=== PATIENT | female | born 1945 | race Caucasian/White ===

== ENCOUNTER 2017-05-13 13:00 | Inpatient (IN) | payer MEDICARE, OTHER ==
[2017-05-26] MEDS ORDERED: CELECOXIB 100 MG CAPSULE PO ONE (06:00)
[2017-05-26] MEDS ORDERED: FAMOTIDINE 20MG TABLET PO ONE (06:00)
[2017-05-26] MEDS ORDERED: VANCOMYCIN HCL 1,000 MG in 0.9 % SODIUM CHLORIDE 250ML 250 ML IVPB ONE (06:00)
[2017-05-26] MEDS ORDERED: CEFAZOLIN 2 Gram 2 GM/50 ML BAG IVPB ONE (06:00)
[2017-05-26] MEDS ORDERED: METOCLOPRAMIDE 10 MG TABLET PO ONE (06:00)
[2017-05-26] MEDS ORDERED: MECLIZINE 25 MG TABLET PO ONE (06:00)
[2017-05-26 08:21] LABS: ABO GROUP A; ANTIBODY SCREEN NEGATIVE (NEGATIVE); RH TYPE POSITIVE
[2017-05-26] MEDS ORDERED: ONDANSETRON HCL IV 4 MG/2 ML VIAL IVP PRN (10:49)
[2017-05-26] MEDS ORDERED: KETOROLAC 30 MG/ML VIAL IVP PRN ×2 (10:49)
[2017-05-26] MEDS ORDERED: ZOLPIDEM TARTRATE 5 MG TABLET PO PRN (10:49)
[2017-05-26] MEDS ORDERED: BISACODYL 10 MG SUPP RC PRN (10:49)
[2017-05-26] MEDS ORDERED: DIPHENHYDRAMINE HCL 25 MG CAPSULE PO PRN (10:49)
[2017-05-26] MEDS ORDERED: HYDROMORPHONE HCL 2 MG/ML VIAL IM PRN (10:49)
[2017-05-26] MEDS ORDERED: HYDROCODONE/APAP 10/325 TABLET PO PRN (10:49)
[2017-05-26] MEDS ORDERED: ACETAMINOPHEN 325 MG TAB PO PRN (10:49)
[2017-05-26] MEDS ORDERED: HYDROMORPHONE HCL 1MG/ML **SYRINGE IM PRN (10:49)
[2017-05-26] MEDS ORDERED: TRAMADOL HCL 50 MG TABLET PO PRN (10:49)
[2017-05-26] MEDS ORDERED: MAGNESIUM HYDROXIDE 30 ML UDC PO PRN (10:49)
[2017-05-26] MEDS ORDERED: AL HYDROX/MAG HYDROX 30ML UD PO PRN (10:49)
[2017-05-26] MEDS ORDERED: NALOXONE 0.4 MG/1 ML VIAL IVP PRN (10:49)
[2017-05-26] MEDS ORDERED: ACETAMINOPHEN W/ CODEINE 300MG/60MG TABLET PO PRN ×2 (10:49)
[2017-05-26] MEDS ORDERED: TRANEXAMIC ACID 1,000 MG/10 ML ML IV ONE ×2 (11:11→16:18)
[2017-05-26] MEDS ORDERED: 0.9 % SODIUM CHLORIDE 10 ML VIAL IVP ONE (11:11)
[2017-05-26] MEDS ORDERED: BUPIVACAINE 0.5% W/EPI MPF 30 ML VIAL IVP ONE (11:11)
[2017-05-26] MEDS: POTASSIUM CHLORIDE/D5-0.9%NACL 20 MEQ/1,000 ML BAG IV SCH ×2 (11:44→23:11)
[2017-05-26] MEDS ORDERED: FLU VAC QS 2017-18 (INPT, 6MO+) 60MCG/0.5ML IM ONE (12:12)
--- NOTE | 2017-05-26 12:21 | Consult ---
Consult Order Detail - Reason for Consult Consult Date: 05/26/17 Consult Order Detail: Hypertension and medical management - Chief Complaint Chief Complaint: DEGENERATIVE JOINT DISEASE LEFT HIP HPI Consult - History of Present Illness Admitting Diagnosis: bobby left hip History of Present Illness: Ms. Pittman is 8- y/o female with degenerative joint disease of the left hip s/p arthroplasty this morning. Medicine has been consulted for medical management of the patients chronic conditions which include hypertension, hypothyroidism and gastroesophageal reflux. On examination this morning the patient is alert, awake and oriented but is somewhat lethargic postoperatively. She says that she is in no pain at this time and has no complaint. ROS Constitutional: Reports: As per HPI. Denies: Chills, Fever, Malaise, Night sweats, Weakness, Weight change - Respiratory Respiratory: Reports: As per HPI. Denies: Cough, Dyspnea, Hemoptysis, Stridor, Wheezes - Cardiovascular Cardiovascular: Reports: As per HPI. Denies: Arrhythmia, Chest pain, Dyspnea on exertion, Edema, Murmurs, Orthopnea, Palpitations, Paroxysmal nocturnal dyspnea, Rheumatic Fever, Syncope - Endocrine Endocrine: Reports: As per HPI. Denies: Fatigue, Heat or cold intolerance, Polydipsia, Polyuria - Gastrointestinal Gastrointestinal: Reports: As per HPI. Denies: Abdominal pain, Constipation, Diarrhea, Hematemesis, Hematochezia, Melena, Nausea, Vomiting - Genitourinary Genitourinary: Reports: As per HPI - Musculoskeletal Musculoskeletal: Reports: As per HPI. Denies: Arthralgia, Back pain, Gout, Joint swelling, Myalgia, Neck pain - Neurological Neurological: Reports: As per HPI. Denies: Abnormal gait, Confusion, Headache, Numbness, Paresthesias, Seizure, Tingling, Tremors, Vertigo, Weakness Past Medical History - SOCIAL HISTORY Smoking Status: Former smoker - RESPIRATORY Hx Respiratory Disorders: No Comment:: has seasonal allergies - CARDIOVASCULAR Hx Cardio Disorders: Yes Hx Chest Pain: Yes (occasional-Dr said it was "inflammation only"/pain subsides with time-) Hx Deep Vein Thrombosis: Yes (left leg 1994?-superficial) Hx Hypertension: Yes (med good control) Comment:: walks 2.5 miles/day - NEURO Hx Neuro Disorders: Yes Hx Neuropathy: Yes (left fingers sometimes) - GI Hx GI Disorders: Yes Hx Diverticulitis: Yes (diverticulosis only) Hx Reflux: Yes Hx Rectal Bleeding: Yes (occasionally-hemmorrhoid) Hx of Polyps: Yes (colon polyp removed) - Hx Genitourinary Disorders: No - ENDOCRINE Hx Endocrine Disorders: Yes Hx Thyroid Disease: Yes (on supplement) - MUSCULOSKELETAL Hx Musculoskeletal Disorders: Yes Hx Arthritis: Yes (hips) - PSYCH Hx Psych Problems: No - HEMATOLOGY/ONCOLOGY Hx Hematology/Oncology Disorders: No Family Medical History Any Significant Family History?: Yes Hx Diabetes: Brother/Sister, Grandparents Hx Heart Disease: Mother, Grandparents Hx HTN: Mother, Grandparents Hx Stroke: Mother H&P Meds - Home Medications and Allergies Allergies Allergy/AdvReac Type Severity Reaction Status Date / Time Sulfa (Sulfonamide Allergy Intermediate RASH Verified 05/13/17 12:45 Antibiotics) Physical Exam - General General Appearance: Alert, Oriented x3, Cooperative, No acute distress - Head Head exam: Atraumatic - ENT Mouth exam: Normal external inspection, Tongue normal - Respiratory Respiratory exam: Normal lung sounds bilaterally. negative: Respiratory distress - Cardiovascular Cardiovascular Exam: Regular rate, Normal rhythm, Normal heart sounds Peripheral Pulses: 2+: Radial (R), Radial (L) - GI/Abdominal GI/Abdominal exam: Soft, Normal bowel sounds. negative: Tenderness - Neurological Neurological exam: Other (not able to perform complete examination at this time. ) - Psychiatric Psychiatric exam: Other Results - Labs Result Diagrams: 05/27/17 06:00 05/27/17 06:00 Labs Last 24 Hours: Laboratory Results - last 24 hr 05/26/17 07:19 ABO Group A Rh Factor Positive Antibody Screen Negative Assessment and Plan - Assessment and Plan (1) History of total left hip arthroplasty Plan: - patient had procedure performed this am and is management as per Orthopedic surgery. - pain control with Ultram, Aurora and Dilaudid as per primary care team. - taper dosing of narcotic medications as appropriate, docusate sodium and colace, anticoagulation orders. - PT/OT BID, for evaluation and treatment. D/C planning Current Visit: Yes Status: Acute Base Code: Z96.642 - PRESENCE OF LEFT ARTIFICIAL HIP JOINT (2) Hypertension Plan: - most recent BP 148/83 - patient currently normotensive and we willl cont to monitor vitals at resume home dose of metoprolol 100mg QD when needed. Current Visit: Yes Status: Acute Base Code: I10 - ESSENTIAL (PRIMARY) HYPERTENSION (3) Hypothyroid Plan: - resume patient's levothyroxine 100mcg QHS. Current Visit: Yes Status: Acute Base Code: E03.9 - HYPOTHYROIDISM, UNSPECIFIED (4) Hyperlipidemia Plan: - resume ASA 81mg QD, Atorvastatin 20mg QHS Current Visit: Yes Status: Acute Base Code: E78.5 - HYPERLIPIDEMIA, UNSPECIFIED - Disposition Disposition: Medically the patient has no active concerns. Please resume medications for chronic conditions and we will continue to follow the patient with you.
--- NOTE | 2017-05-26 14:18 | Rehab Evaluation ---
Patient Information - Patient Information Diagnosis: OA left hip Ordered Treatment: PT Evaluate and Treat Status: Initial Evaluation Surgery: Yes (Left NINOSKA) Date of Surgery: 05/26/17 Past Medical/Surgical Hx: PAST MEDICAL/SURGICAL HISTORY Past Surgical History lymphnode bx neck(benign); cervical fusion c3,4 , 5,6.;colonoscopy PMH - Respiratory Hx Respiratory Disorders No Comment: has seasonal allergies PMH - Cardiovascular Hx Cardiovascular Disorders Yes Hx Chest Pain Yes: occasional-Dr said it was "inflammation only"/pain subsides with time- Hx Deep Vein Thrombosis Yes: left leg 1994?-superficial Hx Hypertension Yes: med good control Exercise Tolerance Good Comment: walks 2.5 miles/day PMH - Neuro Hx Neurological Disorders Yes Hx Neuropathy Yes: left fingers sometimes PMH - GI Hx Gastrointestinal Disorders Yes Hx Diverticulitis Yes: diverticulosis only Hx Gastroesophageal Reflux Yes Hx Rectal Bleeding Yes: occasionally-hemmorrhoid PMH - Hx Genitourinary Disorders No PMH - Endocrine Hx Endocrine Disorders Yes Hx Thyroid Disease Yes: on supplement PMH - Musculoskeletal Hx Musculoskeletal Disorders Yes Hx Arthritis Yes: hips PMH - Psych Hx Psychiatric Problems No PMH - Hematology/Oncology Hx Hematology/Oncology No Disorders Precautions: [place], Fall - Time With Patient Total Time Spent With Patient (Min): 30 Treatment Procedures: Detail (Patient seen bedside and very sleepy, had a hard time keeping eyes open when speaking to her. Able to repeat hip precautions for me then we went through exercises for hip: heel slide, SLR with assist, quad , glut sets, ham sets, also hip abduction, and ankle pumps. Assisted patient to sit up at edge of bed for balance and patient became lightheaded so just sat and did deep breathing exercises. Returned patient with assist of one to supine watching hip precautions. Replaced pillow between knees, compressive stockings and ice pack to left hip. Call light and tray table close and asked NA to assist patient with something to eat.) Subjective Information - Subjective Information Per Patient (Patient lives in ranch style house with two steps into house. Has a walker to use and sister went out to car to get it for patient to use as becomes more able. PT adjusted walker for patient's height. Sister will stay with patient for as long as takes for her to be independent again. Has house set -up for after surgery.) Objective Data - Pain Pain Present: Yes Pain Scale Used: Numeric (1 - 10) (1-2) - Mental Status Patient Orientation: Oriented x3 - Visual Perception Appears within normal limits for therapeutic activities - ROM Within normal limits (except left hip somewhat decreased since surgery.) - Strength/Tone Within normal limits (except left hip 3/5 grossly.) - Coordination Deficit (Right now deficit secondary to just had surgery.) - Bed Mobility Needs Assist (Only needs slight assist into/out of bed and able to push self up in bed OK.) - Transfers Needs Assist (Did not test sit to stand today since lightheaded yet from surgery and hasn't eaten anything.) - Balance Balance Sitting: Good Balance Standing: Fair (Don't know yet as did not try yet.) - Sensation Intact - Gait Detail (Did not try gait yet.) - Special Tests No Therapy Assessment - Therapy Assessment Detail (Patient still a little woozy from surgery and has not really recovered fully yet from anesthesia. ROM and mobility that we did test are going well.) Patient Education - Patient Education Teaching Topic: Equipment Use, Exercise/Activity Response: Return Demonstration Teaching Method: Demonstration Teaching Recipient: Patient, Family Barriers To Learning: None Problem List - Problem List Physical Therapy Problem List: Detail (Patient has some deficits with mobility yet, gait not tested today secondary to still lightheaded and having difficulty becoming fully alert. Will further evaluate gait tomorrow.) Goals - Goals Physical Therapy Goals: Independent with mobility into/out of bed, exercises given, gait on flat surfaces and stairs so safe to go home. Prognosis - Prognosis Good (Patient should do well once she awakens and gets moving better.) Plan - Plan Physical Therapy Plan: Continue PT tomorrow BID then if needed next am to finalize treatment to go home safely.
[2017-05-26] MEDS ORDERED: FENTANYL PF 100MCG/2ML VIAL IV ONE (16:10)
[2017-05-26] MEDS ORDERED: EPHEDRINE SULFATE 50 MG/ML ML IV ONE (16:10)
[2017-05-26] MEDS ORDERED: HYDROMORPHONE HCL 2 MG/ML VIAL IV ONE (16:10)
[2017-05-26] MEDS ORDERED: MIDAZOLAM HCL 2MG/2ML VIAL IV ONE (16:10)
[2017-05-26] MEDS ORDERED: PROPOFOL 10 MG/ML VIAL IV ONE (16:10)
--- NOTE | 2017-05-26 17:26 | Operative Note ---
DATE OF SURGERY: 05/26/17 PREOPERATIVE DIAGNOSIS: END-STAGE ARTHROSIS, LEFT HIP. POSTOPERATIVE DIAGNOSIS: END-STAGE ARTHROSIS, LEFT HIP. PROCEDURE: CEMENTLESS LEFT TOTAL HIP ARTHROPLASTY USING LIU-NEPHEW COMPONENTS WITH A SIZE 54 NO-HOLE REFLECTION CUP, A 35 DEGREE OFFSET WITH A 32 MM DIAMETER HIGHLY CROSS-LINKED LINER WITH A SIZE 12 HIGH OFFSET CEMENTLESS ECHELON STEM WITH A +0, 32 MM OXINIUM HEAD. STAFF SURGEON: DR. WESLEY ANESTHESIA: SPINAL PREPARATION: CHLORAPREP INDIVIDUAL CONSIDERATION: NONE PROCEDURE: The patient was taken to the Operating Room and placed supine on the operating room table. She had successful induction with spinal anesthetic. She was then placed on her side, left side up, and her left leg and hip were prepped and draped in the usual fashion. The patient had direct posterior approach to the hip. Sharp dissection was carried down through the skin and subcutaneous tissues. Small veins were coagulated with a Bovie. The tensor gluteal fascia was opened along the entire length of the incision and deep retractors were placed. Short external rotators were identified and piriformis fossa removed exposing the posterior capsule. The posterior capsulectomy was performed. The hip was dislocated posteriorly. She had a large posterior wall osteophyte, which was removed with an osteotome. She also had exposed bone and highly advanced degenerative change. A femoral neck cut was then made above, about a thumb-breadth above the lesser troch using an oscillating saw. A rim capsulectomy was performed starting with 45 mm reamer to medialize. I reamed the introitus, what was a 53 for a 54 cup. I slightly essentially reamed a 52. After irrigation, I packed the size 54 no- hole reflection cup at 20 degrees of forward flexion and 40 degrees of abduction using the extra-articular alignment guide and bony landmarks. There was solid cementless fixation. I placed the center cap screw and then impacted the 35-degree offset, 32 mm diameter liner, and then put the offset primarily posteriorly and inferiorly. This gave an excellent stable acetabular construct and this was packed off. The proximal femur was delivered into the wound and box cutting osteotome was used to remove proximal metaphyseal bone. Mid stem reaming was done to a size 12. I started feeling cortex just about 10 to 11 broaching to a 12. Anteversion was dialed in to about 15-20 degrees. Her natural angle was neutral. After calcar reaming with a high offset trial +0, I had full stability. I then removed the trial, thoroughly irrigated out, impacted a high offset size 12 [place] stem with solid cementless fixation with solid calcar contact. After irrigation, I dried the [place] Taper. I impacted a +0, 32 Oxinium head, reduced the hip by full stability and full extension, external rotation. I full anterior stability and actually I had full posterior stability no matter where I put the hip. I flexed it up totally and internally rotated it even 90 degrees and I still had great stability. After irrigation, the sciatic nerve was inspected and found to be completely intact. I closed the capsule with running # 2 quill. The patient did receive a gram of Tranexamic Acid IV prior. We mixed a gram of Tranexamic Acid with 30 mL of saline and placed this deep in the fascia. Subcutaneous was closed with running 2-0 quill. The skin and subcutaneous tissue were infiltrated with 30 mL of 0.5% Marcaine with Epinephrine. The skin was closed with pedro and a sterile Bulkee compressive Aquacel type dressing was applied. The patient tolerated the procedure well. Needle and sponge counts were correct. Estimated blood loss was minimal and she was taken back to Recovery in good condition. There were no complications. cc: Dr. Avi Jorge JOB NUMBER: [id number] MTDD
[2017-05-26] MEDS: CEFAZOLIN 2 Gram 2 GM/50 ML BAG IVPB SCH (18:46)
[2017-05-26] MEDS: ASPIRIN 81 MG TABEC PO SCH (21:28)
[2017-05-26] MEDS: DOCUSATE SODIUM 100 MG CAPSULE PO SCH (21:29)
[2017-05-26] MEDS ORDERED: PATIENT OWN MED: SIMVASTATIN 20 MG PO SCH (22:00)
[2017-05-26] MEDS ORDERED: PATIENT OWN MED: LEVOTHYROXINE 100 MCG PO SCH (22:00)
[2017-05-27] MEDS: CEFAZOLIN 2 Gram 2 GM/50 ML BAG IVPB SCH ×2 (01:35→08:34)
[2017-05-27 07:00] LABS: HEMATOCRIT 33.8 % (35.0-47.0)
[2017-05-27] MEDS ORDERED: PATIENT OWN MED: OMEPRAZOLE 20 MG PO SCH (07:00)
[2017-05-27 07:37] LABS: BLOOD UREA NITROGEN 9 mg/dL (8-23); CREATININE 0.5 mg/dL (0.5-0.9); EST GLOMERULAR FILTRATION RATE > 60 mL/min; GLUCOSE,RANDOM 107 mg/dL (74-109)
[2017-05-27] MEDS: DOCUSATE SODIUM 100 MG CAPSULE PO SCH (09:18)
[2017-05-27] MEDS: ASPIRIN 81 MG TABEC PO SCH (09:18)
[2017-05-27] MEDS: HYDROCODONE/APAP 10/325 TABLET PO PRN ×2 (09:18→15:18)
[2017-05-27] MEDS: POTASSIUM CHLORIDE/D5-0.9%NACL 20 MEQ/1,000 ML BAG IV SCH (09:22)
[2017-05-27] MEDS ORDERED: CLARITIN 10 MG PO SCH (10:00)
[2017-05-27] MEDS ORDERED: RIVAROXABAN 10 MG TABLET PO SCH (10:00)
[2017-05-27] MEDS ORDERED: FERROUS SULFATE 325 MG TAB PO SCH (10:00)
[2017-05-27] MEDS ORDERED: PATIENT OWN MED: METOPROLOL ER 100 MG PO SCH (10:00)
--- NOTE | 2017-05-27 10:10 | Physical Therapy Tx Note ---
Physical Therapy Tx Note - Treatment Note Tolerated: Good (Patient feeling much more alert today and doing great. Believes she will be able to go home today. Has been up to bathroom several times and putting some weight on the left hip.) Total Time Spent With Patient: 30 Physical Therapy Tx Note: Detail (Patient seen bedside, sitting up in bed and talking with her sister who will be caring for her at home. Worked through the hip exercises: heel slides, SLR, SAQ, quad sets and glut sets, hip abduction and ankle exercises. Reviewed hip precautions and patient good with those. Supine to sit to stand with SBA and FWW then ambulated into cole about 50 feet to stairwell, able to ambulate down three steps with cues, FWW and rail then pivoted around and ambulated back up three steps with same technique and CGA of therapist. Ambulated back to room and assisted back into bed with only very slight assist for left LE. Replaced compressive stockings, pillow between knees and tray table and call light close.) Physical Therapy Problem List: Detail (Patient has some deficits with mobility yet, gait not tested today secondary to still lightheaded and having difficulty becoming fully alert. Will further evaluate gait tomorrow.) Physical Therapy Goals: Independent with mobility into/out of bed, exercises given, gait on flat surfaces and stairs so safe to go home. Prognosis: Good (Doing very well and should be safe to go home today but will keep working with patient until discharge, especially on hip precautions.) Physical Therapy Plan: Continue PT tomorrow BID then if needed next am to finalize treatment to go home safely.
--- NOTE | 2017-05-27 11:49 | Rehab Evaluation ---
Patient Information - Patient Information Diagnosis: OA left hip Ordered Treatment: OT Evaluate and Treat Status: Initial Evaluation Surgery: Yes (Left NINOSKA) Date of Surgery: 05/26/17 Past Medical/Surgical Hx: PAST MEDICAL/SURGICAL HISTORY Past Surgical History lymphnode bx neck(benign); cervical fusion c3,4 , 5,6.;colonoscopy PMH - Respiratory Hx Respiratory Disorders No Comment: has seasonal allergies PMH - Cardiovascular Hx Cardiovascular Disorders Yes Hx Chest Pain Yes: occasional-Dr said it was "inflammation only"/pain subsides with time- Hx Deep Vein Thrombosis Yes: left leg 1994?-superficial Hx Hypertension Yes: med good control Exercise Tolerance Good Comment: walks 2.5 miles/day PMH - Neuro Hx Neurological Disorders Yes Hx Neuropathy Yes: left fingers sometimes PMH - GI Hx Gastrointestinal Disorders Yes Hx Diverticulitis Yes: diverticulosis only Hx Gastroesophageal Reflux Yes Hx Rectal Bleeding Yes: occasionally-hemmorrhoid PMH - Hx Genitourinary Disorders No PMH - Endocrine Hx Endocrine Disorders Yes Hx Thyroid Disease Yes: on supplement PMH - Musculoskeletal Hx Musculoskeletal Disorders Yes Hx Arthritis Yes: hips PMH - Psych Hx Psychiatric Problems No PMH - Hematology/Oncology Hx Hematology/Oncology No Disorders Premorbid Status: Detail (Modified ind. w/ all I/ADL's. Pt. lives in a single story home with a 3 step entry containing 1 railing, and no steps inside the home. Pt. already has AE at home: sock aid, rn chronic, cane, 2WW, and raised toilet seat. Pt. used sink for support while rising up off toilet. Pt. has 2 bathrooms, 1 with a tub/shower and 1 shower with glass sliding door. Pt. uses the shower and stands while bathing.) Precautions: [place], Fall - Time With Patient Total Time Spent With Patient (Min): 20 Subjective Information - Subjective Information Per Patient Objective Data - Pain Pain Present: Yes - Mental Status Patient Orientation: Oriented x3 - Visual Perception Appears within normal limits for therapeutic activities - ROM Within normal limits (BUE) - Strength/Tone Within normal limits (BUE) - Coordination Appears within normal limits for therapeutic activities - Bed Mobility Independent - Transfers Independent - Balance Balance Sitting: Good Balance Standing: Fair - Sensation Intact (lt touch in tact BUE fingertips) - ADL's/IADL's Detail (Pt. demo. LB dressing to don/doff socks and pants with modified ind. using a sock aid and rn chronic (which she used at home [employer]EM[employer]). Pt. plans to bathe seated at the sink until she feels comfortable enough to pin drafting machine tender the shower. Pt. educ. provided in AE options, such as shower chair or tub bench and hand held shower head. Pt. verbalized understanding and demo. ability to use AE appropriately while adhering to hip precautions. Pt. has a friend who will be available to assist with care needs prn for the first few weeks if needed.) Therapy Assessment - Therapy Assessment Detail (Pt. demo. ability to sit<>stand using 2ww, and LB dressing. Pt. may benefit from an in-home OT evaluation to ease transition back to home and address any environmental/equipment needs. Pt. may benefit from continued PT services to address gait/balance/ambulation needs. In pt. OT services not recommended at this time.) Patient Education - Patient Education Teaching Topic: Equipment Use, Precautions Response: Return Demonstration, Verbalize Understanding Teaching Method: Discussion, Demonstration Teaching Recipient: Patient, Other (friend) Barriers To Learning: None Problem List - Problem List Physical Therapy Problem List: Detail (Patient has some deficits with mobility yet, gait not tested today secondary to still lightheaded and having difficulty becoming fully alert. Will further evaluate gait tomorrow.) Occupational Therapy Problem List: Detail Goals - Goals Physical Therapy Goals: Independent with mobility into/out of bed, exercises given, gait on flat surfaces and stairs so safe to go home. Occupational Therapy Goals: n/a; recommend d/c pt from in-pt. OT services at this time. Prognosis - Prognosis Good Plan - Plan Physical Therapy Plan: Continue PT tomorrow BID then if needed next am to finalize treatment to go home safely. Occupational Therapy Plan: d/c from in pt OT services at this time.
--- NOTE | 2017-05-27 14:13 | Physical Therapy Tx Note ---
Physical Therapy Tx Note - Treatment Note Tolerated: Good (Patient doing very well with mobility and gait, exercises and has passed all skills to be discharged from PT and should be safe to return home with sister's help.) Total Time Spent With Patient: 20 Physical Therapy Tx Note: Detail (Patient seen bedside and sitting up reading in bed. Able to move supine to sit to stand independently now with good control and cautious of hip precautions. Able to ambulate in cole with FWW about 100 feet then back to room, worked on all exercises again and went over hip precautions again. Replaced compressive stockings then pillow between knees, tray table and call light close.) Physical Therapy Problem List: Detail (Patient has some deficits with mobility yet, gait not tested today secondary to still lightheaded and having difficulty becoming fully alert. Will further evaluate gait tomorrow.) Physical Therapy Goals: Independent with mobility into/out of bed, exercises given, gait on flat surfaces and stairs so safe to go home. Prognosis: Good (Patient ready for discharge from PT and wants to go home with sister's help DEEPTHI. Talked to nursing to get process started. Has passed all skills now.) Physical Therapy Plan: Continue PT tomorrow BID then if needed next am to finalize treatment to go home safely.
--- NOTE | 2017-05-30 07:00 | Discharge Summary ---
DATE OF ADMISSION: 05/26/2017. DATE OF DISCHARGE: 05/27/2017. DATE OF SURGERY: 05/26/2017. HISTORY: Antonieta is a delightful 71-year-old female who presents with end-stage arthrosis of her left hip. She was admitted after left total hip arthroplasty. Postoperatively she did well. Her hospital course was unremarkable. PLAN: Discharge to home to the care of her family. Home physical therapy visiting nurse has been arranged. She has been given Catano for pain and Xarelto for deep venous thrombosis prophylaxis. Her visiting nurse will remove her sutures in two weeks. She will follow up in my office in four weeks. DISCHARGE DIAGNOSIS: END-STAGE ARTHROSIS OF THE LEFT HIP. OPERATIONS AND PROCEDURES: Cementless left total hip arthroplasty. DISCHARGE CONDITION: Good. JOB NUMBER: [id number] MTDD
== END 2017-05-27 15:45 | disposition home health service (06) | DRG 470 ==
LOC: MEDSURG 05-26 06:53
PROVIDERS: ADMIT Orthopaedic Surgery; ATTEND Orthopaedic Surgery
PROC: 0SRB06A Replacement of Left Hip Joint with Oxidized Zirconium on Polyethylene Synthetic Substitute, Uncemented, Open Approach (ICD-10-PCS; principal; 2017-05-26 09:00)
DX: M16.12 Unilateral primary osteoarthritis, left hip (principal); I10 Essential (primary) hypertension; E78.00 Pure hypercholesterolemia, unspecified; E03.9 Hypothyroidism, unspecified; Z87.891 Personal history of nicotine dependence
CPT/HCPCS: 80048; 85014; 85018; 86850; 86900; 86901; 93005; 97110; 97116; 97165; 99232; J2405; J3480; J7050

== ENCOUNTER 2017-12-01 11:03 | Inpatient (IN) | payer MEDICARE, OTHER ==
[~2017-12-01 11:03] MED LIST: CEFAZOLIN 2 Gram 2 GM/50 ML BAG IVPB ONE; CELECOXIB 100 MG CAPSULE PO ONE; FAMOTIDINE 20MG TABLET PO ONE; MECLIZINE 25 MG TABLET PO ONE; METOCLOPRAMIDE 10 MG TABLET PO ONE; VANCOMYCIN HCL 1,000 MG in DEXTROSE 5 % IN WATER 250 ML IVPB ONE
[2017-12-01 12:04] LABS: ABO GROUP A
[2017-12-01 12:05] LABS: ANTIBODY SCREEN NEGATIVE (NEGATIVE); RH TYPE POSITIVE
[2017-12-01] MEDS ORDERED: TRANEXAMIC ACID 1,000 MG/10 ML ML IV ONE ×2 (14:00)
[2017-12-01] MEDS ORDERED: 0.9 % SODIUM CHLORIDE 10 ML VIAL IVP ONE (14:00)
[2017-12-01] MEDS ORDERED: HYDROMORPHONE HCL 2 MG/ML VIAL IM PRN (15:14)
[2017-12-01] MEDS ORDERED: AL HYDROX/MAG HYDROX 30ML UD PO PRN (15:14)
[2017-12-01] MEDS ORDERED: MAGNESIUM HYDROXIDE 30 ML UDC PO PRN (15:14)
[2017-12-01] MEDS ORDERED: BISACODYL 10 MG SUPP RC PRN (15:14)
[2017-12-01] MEDS ORDERED: NALOXONE 0.4 MG/1 ML VIAL IVP PRN (15:14)
[2017-12-01] MEDS ORDERED: ACETAMINOPHEN W/ CODEINE 300MG/60MG TABLET PO PRN (15:14)
[2017-12-01] MEDS ORDERED: ACETAMINOPHEN W/ CODEINE 300MG/30MG TABLET PO PRN (15:14)
[2017-12-01] MEDS ORDERED: DIPHENHYDRAMINE HCL 25 MG CAPSULE PO PRN (15:14)
[2017-12-01] MEDS ORDERED: KETOROLAC 30 MG/ML VIAL IVP PRN ×2 (15:14)
[2017-12-01] MEDS ORDERED: ACETAMINOPHEN 325 MG TAB PO PRN (15:14)
[2017-12-01] MEDS ORDERED: ZOLPIDEM TARTRATE 5 MG TABLET PO PRN (15:14)
[2017-12-01] MEDS ORDERED: TRAMADOL HCL 50 MG TABLET PO PRN (15:14)
[2017-12-01] MEDS ORDERED: HYDROCODONE/APAP 10/325 TABLET PO PRN ×2 (15:14)
[2017-12-01] MEDS ORDERED: KETOROLAC 30 MG/ML VIAL IVP ONE (15:47)
[2017-12-01] MEDS ORDERED: PROPOFOL 10 MG/ML VIAL IV ONE (15:47)
[2017-12-01] MEDS ORDERED: DIPHENHYDRAMINE HCL IV 50 MG/ML VIAL IVP ONE (15:47)
[2017-12-01] MEDS ORDERED: ONDANSETRON HCL IV 4 MG/2 ML VIAL IVP ONE ×2 (15:47→21:00)
[2017-12-01] MEDS ORDERED: POTASSIUM CHLORIDE/D5-0.9%NACL 20 MEQ/1,000 ML BAG IV SCH (16:30)
[2017-12-01] MEDS ORDERED: EPHEDRINE SULFATE 50 MG/ML ML IV ONE (16:33)
[2017-12-01] MEDS ORDERED: HYDROMORPHONE PF 1MG/ML **AMPULE IV ONE (16:33)
[2017-12-01] MEDS ORDERED: *PACU ONLY* KETAMINE HCL 10 MG/ML (20ML) VIAL IV ONE (16:33)
[2017-12-01] MEDS ORDERED: MIDAZOLAM HCL 2MG/2ML VIAL IV ONE (16:33)
[2017-12-01] MEDS ORDERED: FENTANYL PF 100MCG/2ML VIAL IV ONE (16:33)
--- NOTE | 2017-12-01 19:16 | Operative Note ---
DATE: 12/01/2017. PREOPERATIVE DIAGNOSIS: ENDSTAGE ARTHROSIS OF THE RIGHT HIP. POSTOPERATIVE DIAGNOSIS: ENDSTAGE ARTHROSIS OF THE RIGHT HIP. PROCEDURE: Cementless right total hip arthroplasty using [employer] components, with a size 52 no-hole reflection cup, a 35 degree offset 32 mm diameter liner, and a size 12 cementless high-offset Palisade stem with a +0, 32 mm diameter [place] Chrome head. STAFF SURGEON: GAIL WESLEY M.D. ANESTHESIA: SPINAL. PREPARATION: CHLORAPREP. INDIVIDUAL CONSIDERATIONS: NONE. PROCEDURE: The patient was taken to the operating room and placed supine on the operating table. She had successful induction of a spinal anesthetic. She was then placed on her side, right side up, and the right leg and hip were prepped and draped in the usual fashion. The patient had a direct posterior approach to the hip. Sharp dissection was carried down through the skin and subcutaneous tissue. Small veins were coagulated with a Bovie. The tensor gluteal fascia was opened along the entire length of the incision and deep retractors were placed. Short external rotators were identified and the piriformis fossa and removed exposing the posterior capsule. A posterior capsulectomy was performed. The hip was dislocated posteriorly. She had lots of deformity with [id number] contact and large posterior wall osteophytes. The femoral neck cut was then made free hand with an oscillating saw. A rim capsulectomy was performed. Posterior wall osteophytes and loose bodies were removed with a rongeur. Starting with a 45 mm reamer to ream just to the medial wall, I reamed to the introitus to 53 for a 54 cup. I slightly under-reamed to 52. After irrigation, I impacted a size 54 no -hole reflection cup in 20 degrees of forward flexion and 40 degrees of abduction using the extraarticular alignment guide and bony landmarks. There was solid cementless fixation. I put the center cap screw and then after irrigation, I impacted a size 32 mm diameter, 35 degree offset liner with the offset basically posteriorly and slightly inferiorly. After irrigation, this was packed off. The box-cutting osteotome was used to remove proximal metaphyseal bone of the femur. Mid-stem reaming was done to a size 12, which corresponded to the other side. I broached to a 12, dialed in anteversion just shy of 30 degrees. After calcar reaming with a +0 trial, there was excellent stability. I removed the trial, which was the broach, irrigated out completely, and then impacted the size 12 high-offset Palisade stem with solid cementless fixation and solid calcar contact. Again, with a +0 trial, there was full stability. I dried the Escalante taper and impacted a +0 32 mm diameter [place] Chrome head. I thoroughly irrigated out the wound and then reduced the hip. I had full stability in extension and external rotation and I had full stability in flexion. I flexed her up actually to her abdomen and then internally rotated 20 to 30 degrees and still had stability. The sciatic nerve was inspected and found to be completely intact. Hemostasis was obtained with a Bovie. Final irrigation. I then went ahead and mixed a gram of Tranexamic acid with 30 mL of saline and placed this deep to the fascia. She did receive a gram preoperatively IV. The tensor gluteal fascia was then closed with running #2 Quill. The subcu was closed in layers with running #0 Quill. The skin was closed with pedro. I did infiltrate the skin and subcutaneous tissue with 30 mL of 0.5% Marcaine with Epinephrine prior to closure. A sterile, Bulkee compressive Aquacel-type dressing was applied. The patient tolerated the procedure well. Needle and sponge counts were correct. Estimated blood loss was about 200 mL. We did check a hemoglobin in the morning. There were no complications. JOB NUMBER: [id number] MTDD
[2017-12-01] MEDS: ONDANSETRON HCL IV 4 MG/2 ML VIAL IVP PRN (19:25)
[2017-12-01] MEDS: DOCUSATE SODIUM 100 MG CAPSULE PO SCH (21:05)
[2017-12-01] MEDS: CEFAZOLIN 2 Gram 2 GM/50 ML BAG IVPB SCH (21:07)
[2017-12-01] MEDS ORDERED: PATIENT OWN MED: SIMVASTATIN 20 MG PO SCH (22:00)
[2017-12-02] MEDS: ONDANSETRON HCL IV 4 MG/2 ML VIAL IVP PRN (00:12)
[2017-12-02] MEDS: CEFAZOLIN 2 Gram 2 GM/50 ML BAG IVPB SCH ×2 (04:53→13:12)
[2017-12-02] MEDS: PATIENT OWN MED: METOPROLOL ER 100 MG PO SCH ×2 (06:54→12:35)
[2017-12-02] MEDS ORDERED: PATIENT OWN MED: OMEPRAZOLE 20 MG PO SCH (07:00)
[2017-12-02 07:08] LABS: HEMATOCRIT 32.2 % (35.0-47.0); HEMOGLOBIN 10.2 gm/dl (11.6-16.0)
[2017-12-02 07:30] LABS: BLOOD UREA NITROGEN 15 mg/dL (8-23); CREATININE 0.6 mg/dL (0.5-0.9); EST GLOMERULAR FILTRATION RATE > 60 mL/min; GLUCOSE,RANDOM 154 mg/dL (74-109)
[2017-12-02] MEDS: DOCUSATE SODIUM 100 MG CAPSULE PO SCH (09:56)
[2017-12-02] MEDS ORDERED: RIVAROXABAN 10 MG TABLET PO SCH (10:00)
[2017-12-02] MEDS ORDERED: PATIENT OWN MED: LORATADINE 10 MG PO SCH (10:00)
[2017-12-02] MEDS ORDERED: FERROUS SULFATE 325 MG TAB PO SCH (10:00)
--- NOTE | 2017-12-02 10:08 | Rehab Evaluation ---
Patient Information - Patient Information Diagnosis: DJD R Hip Ordered Treatment: PT Evaluate and Treat Status: Initial Evaluation Surgery: Yes (R NINOSKA) Date of Surgery: 12/01/17 Past Medical/Surgical Hx: PAST MEDICAL/SURGICAL HISTORY Past Surgical History LTHA 05-26-17 lymphnode bx neck(benign); cervical fusion c3,4 , 5,6.;colonoscopy PMH - Respiratory Hx Respiratory Disorders Yes Hx of URI Yes: terrible cold Sep-October Comment: has seasonal allergies PMH - Cardiovascular Hx Cardiovascular Disorders Yes Hx Chest Pain Yes: occasional-Dr said it was "inflammation only"/pain subsides with time- Hx Deep Vein Thrombosis Yes: left leg 1994?-superficial Hx Hypertension Yes: med good control Exercise Tolerance Good Comment: walks 2.5 miles/day PMH - Neuro Hx Neurological Disorders Yes Hx Neuropathy Yes: left fingers sometimes PMH - GI Hx Gastrointestinal Disorders Yes Hx Diverticulitis Yes: diverticulosis only Hx Gastroesophageal Reflux Yes Hx Rectal Bleeding Yes: occasionally-hemmorrhoid PMH - Hx Genitourinary Disorders No PMH - Endocrine Hx Endocrine Disorders Yes Hx Thyroid Disease Yes: on supplement PMH - Musculoskeletal Hx Musculoskeletal Disorders Yes Hx Arthritis Yes: hips Comment: right hip pain PMH - Psych Hx Psychiatric Problems No PMH - Hematology/Oncology Hx Hematology/Oncology No Disorders Social History: Detail (The patient lives alone in a one story home that has 2 steps to enter with a railing on the right ascending. The patient has a walk-in shower without shower seat or grab bars. The patient has an elevated toilet seat , but no grab bars are present. She will be using a 2WW for ambulation and states she has all hip equipment from previous L NINOSKA.) Precautions: [place], Other (WBAT on R) - Time With Patient Total Time Spent With Patient (Min): 30 Treatment Procedures: Detail (PT Initial Evaluation) Subjective Information - Subjective Information Per Patient (The patient reported no nausea or dizziness prior to evaluation. Stated that she has some hip pain, but otherwise feeling good this morning.) Objective Data - Pain Pain Present: Yes Pain Intensity: 5 Pain Scale Used: Numeric (1 - 10) - Mental Status Patient Orientation: Oriented x3 - ROM Within normal limits (The patient was within functional limits for activities completed at initial evaluation. The patient's R Hip ROM is limited due to NINOSKA precautions.) - Strength/Tone Within normal limits (Within functional limits for activities completed at initial evaluation. Was limited in R Hip as expected s/p R NINOSKA.) - Bed Mobility Independent (The patient was independent with transferring from supine to sit and sit to supine with use of bed rails. She was independent with scooting to the middle of the bed.) - Transfers Independent (The patient was independent with transferring from sit to stand and stand to sit.) - Balance Balance Sitting: Good (The patient had no LOB with sitting at the bedside prior to gait activities.) Balance Standing: Good (The patient had no LOB with immediate standing at the bedside. She had no LOB with gait activities.) - Gait Detail (The patient was able to ambulate from Room 29 to Room 25 and back ( about 40 feet total) with supervision, 2WW and WBAT on R. Ability to ascend/ descend stairs not assessed.) Therapy Assessment - Therapy Assessment Detail (The patient was independent with bed mobility and transfers. She required supervision only for gait activities, but ability to complete stairs was not assessed. The patient stated understanding of NINOSKA Precautions, and maintained these precautions throughout activities.) Patient Education - Patient Education Teaching Topic: Exercise/Activity (HEP was instructed and reviewed, which included: Glute. sets, quad sets, hamstring sets, SLR within precautions, and supine hip abduction. She was instructed to complete 10 reps 1-2x/day.) Response: Return Demonstration, Verbalize Understanding Teaching Recipient: Patient Barriers To Learning: None Problem List - Problem List Physical Therapy Problem List: Detail (1) Decreased ROM and Strength on R as expected R NINOSKA 2) Ability to ascend/descend stairs not assessed 3) Minimally increased R Hip Pain) Goals - Goals Physical Therapy Goals: 1) The patient will be independent with HEP to increase ROM and strength of R Hip. 2) The patient will be able to ascend/descend 2 steps to safely enter the home. Prognosis - Prognosis Good Plan - Plan Physical Therapy Plan: The patient will be seen 1-2x/day M-F for gait training and LE strengthening activities.
[2017-12-02] MEDS ORDERED: PATIENT OWN MED: LEVOTHYROXINE 100 MCG PO SCH (11:00)
[2017-12-02] MEDS: ACETAMINOPHEN W/ CODEINE 300MG/60MG TABLET PO PRN ×2 (13:11→13:23)
--- NOTE | 2017-12-02 14:50 | Physical Therapy Tx Note ---
Physical Therapy Tx Note - Treatment Note Tolerated: Good (Pt. did not complain of pain increase from start to finish of evaluation. She reported 4/10 pain at start of tx. Pt. ambulated and performed bed mobility with no adverse effects.) Total Time Spent With Patient: 45 Physical Therapy Tx Note: Detail (Pt. independently ambulated 134 feet with front wheeled walker and did not exhibit gait deviation. Pt. independently ascended and descended 3 steps with single point cane and did require minimal cues to appropriately position the cane. Pt. was independent with bed mobility and transfer. Pt. verbalized good understanding of her HEP and signs of infection. Pt. was left supine in bed with call light available, IPC attached, and nursing was notified of pt.'s status.) Physical Therapy Problem List: Detail (1) Decreased ROM and Strength on R as expected R NINOSKA 2) Minimally increased R Hip Pain) Physical Therapy Goals: Pt. has met all inpatient PT goals. Prognosis: Good Physical Therapy Plan: The pt. is discharged from inpatient PT.
--- NOTE | 2017-12-02 15:35 | Rehab Evaluation ---
Patient Information - Patient Information Diagnosis: DJD R Hip Ordered Treatment: OT Evaluate and Treat Status: Initial Evaluation Surgery: Yes (R NINOSKA) Date of Surgery: 12/01/17 Past Medical/Surgical Hx: PAST MEDICAL/SURGICAL HISTORY Past Surgical History LTHA 05-26-17 lymphnode bx neck(benign); cervical fusion c3,4 , 5,6.;colonoscopy PMH - Respiratory Hx Respiratory Disorders Yes Hx of URI Yes: terrible cold Sep-October Comment: has seasonal allergies PMH - Cardiovascular Hx Cardiovascular Disorders Yes Hx Chest Pain Yes: occasional-Dr said it was "inflammation only"/pain subsides with time- Hx Deep Vein Thrombosis Yes: left leg 1994?-superficial Hx Hypertension Yes: med good control Exercise Tolerance Good Comment: walks 2.5 miles/day PMH - Neuro Hx Neurological Disorders Yes Hx Neuropathy Yes: left fingers sometimes PMH - GI Hx Gastrointestinal Disorders Yes Hx Diverticulitis Yes: diverticulosis only Hx Gastroesophageal Reflux Yes Hx Rectal Bleeding Yes: occasionally-hemmorrhoid PMH - Hx Genitourinary Disorders No PMH - Endocrine Hx Endocrine Disorders Yes Hx Thyroid Disease Yes: on supplement PMH - Musculoskeletal Hx Musculoskeletal Disorders Yes Hx Arthritis Yes: hips Comment: right hip pain PMH - Psych Hx Psychiatric Problems No PMH - Hematology/Oncology Hx Hematology/Oncology No Disorders Social History: Detail (The patient lives alone in a one story home that has 2 steps to enter with a railing on the right ascending. The patient has a walk-in shower without shower seat or grab bars. The patient has an elevated toilet seat , but no grab bars are present. She will be using a 2WW for ambulation and states she has all hip equipment from previous L NINOSKA.) Precautions: [place], Other (WBAT on R) - Time With Patient Total Time Spent With Patient (Min): 15 Treatment Procedures: Detail (OT eval low) Subjective Information - Subjective Information Per Patient (Pt has all ADL hip equipment and is familiar with how to use it from when she had her L NINOSKA 6 months ago.) Objective Data - Mental Status Patient Orientation: Oriented x3 - Visual Perception Appears within normal limits for therapeutic activities (Pt wears glasses) - ROM Within normal limits (BUE's) - Strength/Tone Within normal limits (BUE's) - Coordination Appears within normal limits for therapeutic activities - Bed Mobility Independent - Transfers Independent (sit<>stand t/f) - Balance Balance Sitting: Good Balance Standing: Good - Gait Detail (Refer to PT evaluation) - ADL's/IADL's Detail (Pt demonstrated independence with ADL equipment to complete independence with LB drsg. Pt also independent with using sock aid to don socks. Pt will have 24-7 supervision available for first week of patient's return home. Pt able to verbalize understanding of wrapping technique to incision to prevent water saturation during showering. Pt is safe and independent with drsg using ADL equipment.) Therapy Assessment - Therapy Assessment Detail (Pt is safe and independent with LB drsg and use of ADL equipment. No further inpatient OT needed at this time.) Patient Education - Patient Education Teaching Topic: Equipment Use Response: Return Demonstration Teaching Method: Discussion Teaching Recipient: Patient (and individual that will be staying with patient for the next week upon her return home.) Barriers To Learning: None Problem List - Problem List Physical Therapy Problem List: Detail (1) Decreased ROM and Strength on R as expected R NINOSKA 2) Minimally increased R Hip Pain) Goals - Goals Physical Therapy Goals: Pt. has met all inpatient PT goals. Prognosis - Prognosis Good Plan - Plan Physical Therapy Plan: The pt. is discharged from inpatient PT. Occupational Therapy Plan: No further inpatient OT needed at this time. Pt to be d/c'd from OT.
--- NOTE | 2017-12-02 19:47 | Discharge Summary ---
DATE OF ADMISSION: 12/01/17 DATE OF DISCHARGE: 12/02/17 DATE OF SURGERY: 12/01/17 HISTORY: Antonieta is a delightful 72-year-old female who was admitted after a right total hip arthroplasty. Postoperatively she did well. Her hospital course was unremarkable. DISCHARGE INSTRUCTIONS: The plan is to discharge her to home in the care of her family. Home PT and Visiting Nurse have been arranged. Her sutures will be removed by the Visiting Nurse in two weeks. She will follow-up at my office in four weeks. She will be given Tylenol #3 for pain. She will finish her five days of Xarelto and then continue with the Aspirin that she takes. FINAL DIAGNOSIS/PRIMARY DIAGNOSIS: END-STAGE ARTHROSIS OF THE RIGHT HIP. SECONDARY DIAGNOSIS: OPERATIVE BLOOD LOSS ANEMIA. OPERATIONS AND PROCEDURES: CEMENTLESS RIGHT TOTAL HIP ARTHROPLASTY. DISCHARGE CONDITION: GOOD. JOB NUMBER: [id number] MTDD
== END 2017-12-02 18:25 | disposition home health service (06) | DRG 470 ==
LOC: MEDSURG 11:03
PROVIDERS: ADMIT Orthopaedic Surgery; ATTEND Orthopaedic Surgery
PROC: 0SR902A Replacement of Right Hip Joint with Metal on Polyethylene Synthetic Substitute, Uncemented, Open Approach (ICD-10-PCS; principal; 2017-12-01 13:00)
DX: M16.11 Unilateral primary osteoarthritis, right hip (principal); I10 Essential (primary) hypertension; E78.00 Pure hypercholesterolemia, unspecified
CPT/HCPCS: 36416; 80048; 82948; 85014; 85018; 86850; 86900; 86901; 97116; 97530; J1170; J1200; J1885; J2405; J3480; J7060